=== PATIENT | female | born 1970 | race Caucasian/White ===

== ENCOUNTER 2017-12-18 09:55 | Emergency (ER) | payer OTHER ==
[~2017-12-18] VITALS: Ht 162.6 cm; Wt 82.0 kg
[~2017-12-18 09:55] MED LIST: ACT30 PO; BUPRTAB51 PO; CLTP PO; DPPI400 SQ; DPRCR15; ENBREL SQ; FAMO20TA11 PO; INSDGI SC; LISIPOW PO; MELO15TA3 PO; METH2.5T PO; NOVAFINE; NVLGI; OXYC-57 PO; SNG10 PO; [UNRECOGNIZED DRUG - CODE]; [UNRECOGNIZED DRUG - OTHER] TOP
[2017-12-18 10:01] VITALS: Ht 162.6 cm; Wt 82.0 kg
--- NOTE | 2017-12-18 10:46 | DIAGNOSTIC IMAGING REPORT ---
R ANKLE MIN 3 VIEWS ROUTINE HISTORY: 47 years-old Female fall; R ankle pain acute right ankle pain status post fall COMPARISON: None available TECHNIQUE: 3 views of the right ankle FINDINGS: There is an acute trimalleolar fracture about the right ankle with oblique distal fibular fracture extending to level of the tibial plafond and demonstrating 4 mm lateral displacement and 9 degrees apex medial angulation. The distal tibiofibular syndesmosis is widened 8 mm. Complete transverse fracture of the medial malleolus is noted. Acute nondisplaced subtle fracture involves the posterior malleolus. Small joint effusion with moderate circumferential soft tissue swelling. Moderate plantar and Achilles enthesophytes about the calcaneus. IMPRESSION: 1. Acute trimalleolar fracture of the right ankle with angulation and displacement as above. Widening of the distal tibiofibular syndesmosis compatible with syndesmotic ligamentous injury. 2. Moderate soft tissue swelling with small joint effusion. The above report was generated using voice recognition software. It may contain grammatical, syntax or spelling errors. Electronically signed by: Oleksandr Malin M.D. 12/18/2017 10:44 AM Dictated Date/Time: 12/18/2017 10:41 AM
[2017-12-18] MEDS ORDERED: INSU1INJ33 SC (11:04)
[2017-12-18] MEDS ORDERED: GLC500 PO (11:04)
[2017-12-18] MEDS ORDERED: ASPI81TA28 PO (11:04)
[2017-12-18] MEDS ORDERED: SNG10 PO (11:04)
[2017-12-18] MEDS ORDERED: CHOL200010 PO (11:04)
[2017-12-18] MEDS ORDERED: LISI-461 PO (11:04)
[2017-12-18] MEDS ORDERED: NVLG SQ (11:04)
[2017-12-18] MEDS ORDERED: FOLI1TAB8 PO (11:04)
[2017-12-18] MEDS ORDERED: USTE90IN INJ (11:04)
[2017-12-18] MEDS ORDERED: ATOR-24 PO (11:04)
[2017-12-18] MEDS ORDERED: LINA1TAB PO (11:04)
[2017-12-18] MEDS ORDERED: MELO7.5T6 PO (11:04)
[2017-12-18] MEDS ORDERED: ONDANSETRON INJ 2 MG/ML 2 ML VIAL IV STA (11:28)
[2017-12-18] MEDS ORDERED: MoRPHine SULFATE 10 MG/ML CARP/VIAL IV STA (11:28)
[2017-12-18] MEDS ORDERED: OXYC-57 PO (12:32)
--- NOTE | 2017-12-18 12:37 | DIAGNOSTIC IMAGING REPORT ---
R ANKLE MIN 3 VIEWS ROUTINE HISTORY: 47 years-old Female post reducction and splinting status post reduction splinting of acute right trimalleolar ankle fracture. COMPARISON: Right ankle radiographs 12/18/2017 TECHNIQUE: 3 views of the right ankle FINDINGS: Status post reduction and casting of the trimalleolar ankle fracture. Fine bony detail is obscured by overlying casting material. Distal tibiofibular syndesmotic widening has slightly decreased from comparison now measuring 6 mm. Comminuted mildly angulated and displaced fracture of the distal fibula demonstrates mildly improved alignment, now with lateral displacement of 3 mm, previously 4 mm. Degree of angulation is unchanged. Unchanged posterior and medial malleoli fractures. Persistent soft tissue swelling with small joint effusion and spurring about the calcaneus. IMPRESSION: Status post reduction and casting of the trimalleolar right ankle fracture with slightly improved alignment as above. The above report was generated using voice recognition software. It may contain grammatical, syntax or spelling errors. Electronically signed by: Oleksandr Malin M.D. 12/18/2017 12:36 PM Dictated Date/Time: 12/18/2017 12:33 PM
[2017-12-18 12:59] VITALS: BP 110/72; PULSE 91; TEMP 36.8; O2SAT 96
--- NOTE | 2017-12-18 17:34 | EMERGENCY ROOM VISIT NOTE ---
ED Visit Note First contact with patient: 10:14 Chief Complaint: Right ankle pain. History of Present Illness: Ms. Vinson is a 47-year-old white female who is brought into the ED the wheelchair accompanied by her daughter complaining of right ankle pain. Patient reports approximately 1.5 hours ago she was walking out to her car and slipped and fell. She reports when she fell she felt like her ankle was turned externally. She reports since her fall she has not been able to bear weight. She does report she received assistance from her daughter to stand up and when she was standing up she reports she felt a clicking and popping sensation and felt like her foot fell into a more anatomical position. Currently she describes her pain as a sharp, burning and stinging sensation. She places her discomfort over the medial and lateral malleolus. She rates her discomfort 8/10. Her pain is nonradiating. Her pain worsens with all movements of the ankle and palpation of the ankle components. She has not identified any alleviating factors related to the pain. She reports she did take some ibuprofen with mild relief of her discomfort. Associated with her pain she does have some mild tingling sensation in her toes. She denies any dizziness or lightheadedness before fall, she did not strike her head or have a loss of consciousness at the time of the fall, she denies signs of head injury since the fall, neck pain, back pain, chest pain, shortness of breath, abdominal pain, nausea, vomiting, extremity weakness/numbness/tingling. Review of Systems: As noted above in history of present illness. All body systems were reviewed and found to be negative as noted above. Past Medical History: Diabetes, hypertension, kidney stones, psoriatic arthritis and status post cholecystectomy, section, tonsillectomy and lithotripsy. Current Medications: Medications Dose Route/Sig Max Daily Dose Days Date Category Dose Instructions Stelara (Ustekinumab) 90 Mg/Ml Inj 90 Mg INJ Q12 12/18/17 Reported Folvite (Folic Acid) 1 Mg Tab 2 Mg PO DAILY 12/18/17 Reported Aspirin Ec (Aspirin) 81 Mg Tab 81 Mg PO DAILY 12/18/17 Reported Vitamin D (Cholecalciferol) 2,000 Unit Cap 2,000 Units PO DAILY 12/18/17 Reported Lisinopril 10 Mg Tab 10 Mg PO DAILY 12/18/17 Reported Lipitor (Atorvastatin Calcium) 40 Mg Tab 40 Mg PO DAILY 12/18/17 Reported Tradjenta (Linagliptin) 5 Mg Tab 5 Mg PO DAILY 12/18/17 Reported Metformin HCl 500 Mg Tab 500 Mg PO BID 12/18/17 Reported Tresiba Flextouch (Insulin Degludec) 100 Unit/Ml Inj 36 Units SC HS 12/18/17 Reported Novolog (Insulin Aspart) 100 Units/Ml Inj 9 Units SQ TID 12/18/17 Reported Montelukast Sodium (Montelukast Sod) 10 Mg Tab 10 Mg PO DAILY 12/18/17 Reported Mobic (Meloxicam) 7.5 Mg Tab 7.5 Mg PO DAILY 12/18/17 Reported Methotrexate 2.5 Mg Tab 20 Mg PO WK 05/21/08 Reported TAKES ON Pepcid (Famotidine) 20 Mg Tab 20 Mg PO BID 05/21/08 Reported Wellbutrin-Xl (Bupropion HCl) 300 Mg Tabcr 300 Mg PO DAILY 05/21/08 Reported Allergies to Medications: Erythromycin, penicillin. Social History: Patient is currently employed; she feels safe in her home environment; he denies tobacco use. Physical Examination: Vital Signs: Date Time Temp Pulse Resp B/P (MAP) Pulse Ox O2 Delivery O2 Flow Rate FiO2 12/18/17 12:59 36.8 91 18 110/72 96 12/18/17 12:23 97 12/18/17 12:05 36.8 96 18 120/80 94 Room Air 12/18/17 11:14 36.8 98 20 119/76 99 Room Air 12/18/17 10:01 36.8 100 20 129/77 98 Room Air GENERAL: 47-year-old female in mild to moderate distress due to pain, nontoxic- appearing, afebrile and hemodynamically stable. NEUROLOGICAL: Awake, alert and oriented to person, place and time. Answering questions appropriately and following commands. SKIN: Warm, dry and pink. No soft tissue trauma noted. RIGHT LOWER EXTREMITY: No gross bony deformity. No shortening or malrotation. No tenderness in the hip, knee, proximal lower leg or foot. Moderate tenderness over both the medial and lateral malleolus with moderate swelling and early ecchymosis. Bony crepitus palpable over both malleoli. She was able to wiggle her toes but refused to move her ankle due to pain. Ligamentous/ ankle instability was noted with distraction and inversion. Throughout the foot the skin was warm and pink and capillary refill is brisk. Distal pulses were intact. She was able to distinguish light sensations through all dermatomes of the foot. ED Course: Patient is assessed as noted above. Patient's medication list was reviewed. Right Ankle X-Rays: Were read by myself and the radiologist showing acute trimalleolar fracture the right ankle with angulation and displacement and widening of the distal tibiofibular syndesmosis. Moderate soft tissue swelling and small joint effusion. A chest case was consulted with Dr. Rodriguez, [facility]; he recommended trying to reduce the fracture slightly during splinted and office follow-up tomorrow for surgical evaluation. An IV lock was initiated and patient received 4 mg of morphine IV and 4 mg of Zofran IV. Patient's ankle was placed at 90 and I applied traction and compressed the malleoli during splinting; she was placed in a Ortho-Glass posterior and stirrup splint. Right ankle x-rays: Was read by myself and the right etiology is showing slight improvement in angulation. Patient was educated on crutch use. Patient was educated about today's findings and instructed on her treatment plan ; she verbalized understanding and agreement with this plan. Clinical Impression: Right trimalleolar ankle fracture. Disposition: Patient was discharged home in stable condition; prior to departure she was reassessed and subjectively reported she was feeling much better. Plan: Comfort measures were discussed with the patient including rest, ice, elevation , splint and crutch use and she was placed on a sliding pain medication scale of ibuprofen, acetaminophen and Percocet; her name was checked in the state database and no red flags were noted and she was given appropriate narcotic precautions. Patient was encouraged to call her oncology rep specialist at [facility], for definitive care and treatment. Patient was encouraged return ED for uncontrolled pain, foot weakness/numbness/ tingling or any new/concerning symptoms.
== END 2017-12-18 13:00 | disposition home or self-care (01) ==
LOC: C.EDB 09:57 → C.EDC 13:00
DX: S82.851A Displaced trimalleolar fracture of right lower leg, initial encounter for closed fracture (principal); W18.30XA Fall on same level, unspecified, initial encounter; L40.50 Arthropathic psoriasis, unspecified; E11.9 Type 2 diabetes mellitus without complications; I10 Essential (primary) hypertension; Z79.82 Long term (current) use of aspirin; Z79.84 Long term (current) use of oral hypoglycemic drugs; Z79.4 Long term (current) use of insulin